=== PATIENT | female | born 1965 | race Caucasian/White ===

== ENCOUNTER 2018-12-23 08:56 | Day surgery (SDC) | payer MEDICAID ==
[~2018-12-23] VITALS: Ht 154.9 cm; Wt 90.7 kg
--- NOTE | ~2018-12-23 | HP ---
PATIENT: VIC BLANDON MEDICAL RECORD: [id number] ACCOUNT: [id number] LOCATION:[facility] : 69 ADMISSION DATE: 12/23/18 PCP: HISTORY AND PHYSICAL EXAMINATION HISTORY OF PRESENT ILLNESS: Vic is a 53-year-old female with chronic tonsillitis. She is being admitted for tonsillectomy. PAST MEDICAL HISTORY: Includes hypertension and reflux. PAST SURGICAL HISTORY: Includes carpal tunnel surgery, hysterectomy, appendectomy, and cholecystectomy. CURRENT MEDICATIONS: Losartan, Zoloft, Prilosec, and Zantac. ALLERGIES: SULFA, ERYTHROMYCIN, AND NAPROXEN. PHYSICAL EXAMINATION: GENERAL: She is healthy-appearing, developmentally normal. FACE: Normal, symmetric, no lesions. EYES: Sclerae and conjunctivae are normal. EARS: Canals and TMs are normal. NOSE: No mass, polyps or drainage. ORAL CAVITY AND OROPHARYNX: 3+ cryptic tonsils. NECK: No masses, no adenopathy. CHEST: Clear. CARDIOVASCULAR: Regular rate and rhythm, no murmur. EXTREMITIES: Normal. IMPRESSION: Chronic caseous tonsillitis. PLAN: Tonsillectomy. TRANSINT:[id number] Voice Confirmation ID: [id number] DOCUMENT ID: [id number] WILBER GORDON MD CC: [id number] DICTATION DATE: 12/19/182050 MODULAR HOME CREW MEMBER: 12/19/182131 [facility] [address] [place] [address]
--- NOTE | ~2018-12-23 | OP ---
PATIENT NAME: VIC BLANDON MEDICAL RECORD: [id number] :69 LOCATION:[facility] ADMISSION DATE: SURGEON: WILBER AKERS MD DATE OF OPERATION: 12/23/2018 PREOPERATIVE DIAGNOSIS: Chronic tonsillitis. POSTOPERATIVE DIAGNOSIS: Chronic tonsillitis. PROCEDURE: Tonsillectomy. SURGEON: Wilber Akers MD ANESTHESIA: General orotracheal. BLOOD LOSS: Less than 5 cc. SPECIMENS: Right and left tonsil. COMPLICATIONS: None. DISPOSITION: Recovery stable. PROCEDURE NOTE: She was brought to the operating room and placed in supine position, sedated and intubated by anesthesia. The eyes were taped. Table was turned 90 degrees. Head drapes were applied. She was positioned for tonsillectomy. Using a headlight, a Eugenia-Vinay mouth gag was carefully inserted and elevated on a towel on her chest. The palate was examined and palpated. It was normal. A red rubber catheter was placed to the right side of the nose into the pharynx and grasped with tonsil clamp to retract the soft palate. Using a mirror, the nasopharynx was examined and there was no significant adenoid tissue. The choanae and eustachian orifices were normal. The red rubber catheter was let down and removed. The right tonsil was grasped at the superior pole with a straight Allis clamp. Spatula cautery on a setting of 9 was used to dissect out the tonsil along its capsule, preserving the anterior and posterior tonsillar pillar. The left tonsil was removed in the same fashion. There was evidence of possibly old tonsil abscesses on both sides, some soft necrotic material and scarring, but they both looked fairly similar. The right and left tonsil was sent separately and labeled as such in formalin. The suction cautery on a setting of 20 was used to control minimal oozing. Both sides of the nose were irrigated with saline. The pharynx was suctioned. Tonsillar fossae were agitated. Everything was carefully inspected again. With the field clean and dry, the Eugenia-Vinay mouth gag was let down and removed. She was awakened, extubated, and transported to recovery in good condition. No complications. TRANSINT:[id number] Voice Confirmation ID: [id number] DOCUMENT ID: [id number] OPERATIVE REPORT [id number] BARBER,WILBER ABDI MD CC: [id number] DICTATION DATE: 12/23/18 1418 MEDIA ARTS PROFESSOR: 12/23/18 1447 [facility] [place] [id number] [place] [id number]
[~2018-12-23 08:56] MED LIST: CLARITIN 10 MG10 MG PO; COZAAR50 MG PO; OMEPRAZOLE40 MG PO; ZOLOFT50 MG PO
[2018-12-23 09:15] LABS: HEMATOCRIT 44.6 % (36.0-48.0); HEMOGLOBIN 15.2 g/dL (12-16); MCHC 34.1 g/dL (31.0-37.0); MCV 85.1 fL (80.0-100.0); MEAN PLATELET VOLUME 10.3 fL (7.4-10.4); RBC 5.24 10x6/uL (4.00-5.40); RDW 13.9 % (11.5-14.5); WBC 13.2 10x3/uL (4.8-10.8)
[2018-12-23 12:32] VITALS: Ht 154.9 cm; Wt 90.7 kg
--- NOTE | 2018-12-23 19:00 | NUR ---
VERBAL INSTRUCTIONS GIVEN WITH FORMS
== END 2018-12-23 16:45 | disposition home or self-care (01) ==
LOC: D.OPS 08:56 → EDBD 11:45 → D.PAN 11:45 → D.OPS 11:45
PROVIDERS: Anesthesiology; ATTEND Otolaryngology
DX: J35.01 Chronic tonsillitis (principal)